=== PATIENT | female | born 2000 | race Hispanic/Latino ===

== ENCOUNTER → 2022-09-13 09:44 | Outpatient (CLI) | payer OTHER, SELFPAY ==
--- NOTE | 2022-09-13 09:46 | DI.US.S_ITS ---
ULTRASOUND OF RIGHT BREAST: 09/13/2022 CLINICAL: Palpable right breast lump. No prior exams were available for comparison. Color flow and real-time ultrasound of the right breast were performed on the areas of interest. Velázquez scale images of the real-time examination were reviewed. The breast tissue of the right breast is homogeneous dense. IMPRESSION: NEGATIVE There is no sonographic evidence of malignancy. There is no sonographic abnormality seen in the right breast to correspond with the palpable abnormality at 10 o'clock, however, clinical followup is recommended. This exam was interpreted at Station ID: [id number]. Electronically Signed By: Sara Ferrer M.D. lk/:09/13/2022 10:07:55 letter sent: Clinical Evaluation Ultrasound BI-RADS: 1 Negative
== END ==
PROVIDERS: Referring Provider Nurse Practitioner Family; Visit Provider Nurse Practitioner Family
DX: N63.11 Unspecified lump in the right breast, upper outer quadrant (principal)
CPT/HCPCS: 76642